=== PATIENT | male | born 1940 | race Caucasian/White ===

== ENCOUNTER → 2017-03-23 | Day surgery (SDC) | payer MEDICARE ==
[~2017-03-23] MED LIST: AMLO5TAB22 PO; ASPI81 PO; BUPIVACAINE HCL PF 0.5% 10 ML VIAL ONE; DIOV160T60 PO; FENO50TA PO; FISH1000 PO; GENTAMICIN SULFATE 80 MG/2 ML VIAL ONE; HYDR12.56 PO; NIAC100T3 PO; OMEP20CA5 PO; PRIM50TA PO; PROPOFOL 200 MG/20 ML AMP IV ONE; SODIUM CHLORIDE 0.9% 100 ML ADDBAG IV ONE; TAB-TAB PO; TAMS0.4C67 PO; TOPR100T15 PO; ceFAZolin INJ 1,000 MG VIAL ONE
--- NOTE | 2017-03-23 17:49 | TN ---
cc: LASHAWN MONTES M.D. DATE OF SURGERY 03/23/2017 PREOPERATIVE DIAGNOSES 1. Phimosis (ICD - 10 code of N47.1). 2. 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 POSTOPERATIVE DIAGNOSES 1. Phimosis (ICD - 10 code of N47.1). 2. 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 PROCEDURE 1. Complex circumcision (CPT code 66054 - 22). 2. Meatotomy (CPT code 04594 - 59). INDICATION Mr. Moran is a 76-year-old gentleman who complained of lower urinary tract symptoms and on evaluation was found to have severe phimosis of the foreskin with complete adherence of the foreskin to the glans penis and meatal stenosis. He present now for definitive treatment. FINDINGS Are severe phimosis with excessive scarring and adhesions of the foreskin to the glans penis with resultant meatal stenosis. There is only a small opening dorsally to be able to even visualize the glans. PROCEDURE DETAILS Procedure well as risks, benefits were explained to the patient. Informed consent was obtained. The patient was taken major operative theater where he was placed in supine position. The patient was identified as well as the operative site and a universal time-out was performed in standard fashion. At this time general anesthetic and prophylactic intravenous antibiotics of Ancef 1 gram was administered. After adequate anesthetic his genitalia and groin were prepped and draped in the usual sterile fashion. At this time a penile block was performed using 1% lidocaine plain and 0.25% Marcaine plain. This was done in standard fashion. At this time due to the complete adhesion of the foreskin a dorsal slit was performed at the 12 o'clock position between two mosquito clamps and tenotomies were used to incise the tissue so that the glans could presumably be released however, due to the excessive scarring there was essentially no evidence of the coronal sulcus or obvious plane so essentially meticulous dissection once we were able to identify the coronal sulcus was performed circumferentially and all of the tissue was incised sharply so that the coronal sulcus could be liberated. At this time a ventral meatotomy was made in the ventral fashion using a blade over the Chante sounds to open up the meatus. At this time the formal circumcision was then performed using the sleeve technique. A sterile skin marker was made to naga the level of the coronal sulcus in the unretracted state and then in the retracted state about a centimeter below the coronal sulcus and the distal shaft skin. This was then incised using the 11 blade scalpel and then electrocautery was used for meticulous hemostasis. After both incisions were made circumferentially that sleeve of tissue was excised using the electrocautery. After confirming hemostasis the skin edges were opposed using 3-0 chromic suture in an interrupted pattern first in quadrants and then these were bisected until there was complete apposition of the tissue. At this time Polysporin ointment and dry dressings were applied. The patient emerged from anesthetic without difficulty and transferred to recovery room in stable condition to be discharged home when criteria is met. Please note that there was substantial additional work required for this procedure due to the severity of the adhesions, this caused increased intensity, time and some technical difficulty with this procedure. Thus the services rendered were significantly more complex than described for the CPT code in question. MD CHRIS Ruby/ANA /5:09 PM /5:27 PM
== END | disposition home or self-care (01) ==
LOC: ESDC 12:15
PROVIDERS: ATTEND Urology
DX: N47.1 Phimosis (principal); N35.9 Urethral stricture, unspecified
CPT/HCPCS: 00920; 53020; 54161; J0690; J1580; J3010

== ENCOUNTER 2017-08-29 21:11 | Emergency (ER) | payer MEDICARE ==
[~2017-08-29] VITALS: Ht 175.3 cm; Wt 100.0 kg
[~2017-08-29 21:11] MED LIST changes: -BUPIVACAINE HCL PF 0.5% 10 ML VIAL ONE; -GENTAMICIN SULFATE 80 MG/2 ML VIAL ONE; -PROPOFOL 200 MG/20 ML AMP IV ONE; -SODIUM CHLORIDE 0.9% 100 ML ADDBAG IV ONE; -ceFAZolin INJ 1,000 MG VIAL ONE
[2017-08-29 21:18] VITALS: BP 207/84; PULSE 75; RESP 17; TEMP 99; O2SAT 96
[2017-08-29] MEDS ORDERED: FENO145T2 PO (21:32)
[2017-08-29] MEDS ORDERED: ROSU40 PO (21:32)
[2017-08-29] MEDS ORDERED: VALS1TAB65 PO (21:32)
[2017-08-29] MEDS ORDERED: TAMS0.4C4 PO (21:32)
[2017-08-29] MEDS ORDERED: OMEP40CA2 (21:32)
[2017-08-29 21:35] VITALS: O2SAT 96
[2017-08-29] MEDS ORDERED: PROP120C PO (21:41)
[2017-08-29] MEDS ORDERED: ASPI-516 CHEW (21:41)
[2017-08-29] MEDS ORDERED: PRIM50TA5 PO (21:41)
[2017-08-29] MEDS ORDERED: FISH1200 (21:41)
[2017-08-29] MEDS ORDERED: FIBE625T PO (21:41)
[2017-08-29] MEDS ORDERED: SACC1CAP3 PO (21:41)
[2017-08-29] MEDS ORDERED: CALCTAB33 PO (21:41)
[2017-08-29] MEDS ORDERED: NIAC500T5 PO (21:41)
[2017-08-29] MEDS ORDERED: MULT1TAB46 (21:41)
--- NOTE | 2017-08-29 21:41 | PD ---
HPI Chief Complaint: General Weakness Time Seen by Provider: 21:18 Travel History International Travel<30 days: No Contact w/Intl Traveler<30days: No Traveled to known affect area: No History of Present Illness HPI 69-year-old male presents to the emergency department for evaluation of dizziness and difficulty focusing his eyes and the TV that started 7 PM this evening. Patient states he was watching TV when he felt slightly dizzy. He states the dizziness is worse with movement. He states that when he would focus on the TV, he would notice that his eyes would not focus and became " cross eyed". However, he looked away, they would resolve but when he looked back at the TV with start up again. Patient denies headache. He denies any chest pain or shortness of breath. No abdominal pain. No nausea, vomiting, diarrhea. He does report history of Mnire's disease, but states this feels different. Patient has history of cardiac bypass and pacemaker. He also has diet-controlled diabetes. Moderate severity. Patient reports chronic weakness of the left arm and right leg from polio as a child. He denies any new weakness or syncope. PFSH Past Medical History Arthritis: No Asthma: No Autoimmune Disease: No Blood Disorders: No Anxiety: No Depression: No Heart Rhythm Problems: Yes Cancer: No Cardiovascular Problems: Yes High Cholesterol: Yes Chemotherapy: No Chest Pain: Yes Congestive Heart Failure: No COPD: No Cerebrovascular Accident: No Diabetes: Yes Patient Takes Glucophage: No Diminished Hearing: Yes (ZARA HEARING AIDS) Endocrine: No Gastrointestinal Disorders: Yes GERD: No Glaucoma: No Genitourinary: No Headaches: No Hepatitis: No Hiatal Hernia: No Hypertension: Yes Immune Disorder: No Kidney Stones: No Medical other: Yes (POLIO) Musculoskeletal: No Neurologic: No Psychiatric: No Reproductive: No Respiratory: No Migraines: No Myocardial Infarction: No Radiation Therapy: No Renal Failure: No Seizures: No Sickle Cell Disease: No Sleep Apnea: No Thyroid Disease: No Ulcer: Yes (hx bleed ) Influenza Vaccination: Yes ?: Not Past Surgical History Abdominal Surgery: No AICD: No Appendectomy: No Arteriovenous Shunt: No Cardiac Surgery: Yes (cabgx2) Cholecystectomy: No Coronary Artery Bypass Graft: Yes (2 VESSEL JUNE 2001) Ear Surgery: Yes (MENEIERS DISEASE-EAR SURGERY X 2--) Endocrine Surgery: No Eye Surgery: No Genitourinary Surgery: No Gynecologic Surgery: No Insulin Pump: No Joint Replacement: No Neurologic Surgery: Yes (LAMINECTOMY LUMBAR SPINE 1990) Oral Surgery: No Pacemaker: Yes ([facility]) Thoracic Surgery: Yes Social History Alcohol Use: No Tobacco Use: No Substance Use: No Allergies-Medications (Allergen,Severity, Reaction): Coded Allergies: No Known Allergies (Verified , 10/02/15) Reported Meds & Prescriptions Reported Meds & Active Scripts Active Reported Fibercon (Calcium Polycarbophil) 625 Mg Tab 625 Mg PO BID PRN Probiotic (Saccharomyces Boulardii) 250 Mg Cap 250 Mg PO BID Multi Vitamin Daily (Multiple Vitamin) 1 Tab Tab Fish Oil 1200 mg (Pierson-3 Fatty Acids) 360 Mg-1,200 Mg Cap Calcium 600+D Plus Minerals (Calcium Carbonate-Vitamin D W/Minerals) 600-400 Mg- Unit Tab 1 Tab PO BID Niacin 500 Mg Tab 500 Mg PO DAILY Aspirin 81 Mg Chew 81 Mg CHEW DAILY Propranolol ER 24 HR (Propranolol HCl) 120 Mg Cap 120 Mg PO DAILY Primidone 50 Mg Tab 50 Mg PO BID Crestor (Rosuvastatin Calcium) 40 Mg Tab 40 Mg PO DAILY Fenofibrate 145 Mg Tab 145 Mg PO DAILY Valsartan 160 Mg Tab 160 Mg PO DAILY Omeprazole 40 Mg Cap 40 Mg BID Tamsulosin (Tamsulosin HCl) 0.4 Mg Cap 0.8 Mg PO HS Review of Systems Except as stated in HPI: all other systems reviewed are Neg Physical Exam Narrative GENERAL: Well-nourished, well-developed elderly male patient, afebrile. SKIN: Focused skin assessment warm/dry. HEAD: Normocephalic. Atraumatic. ENT: Mucosa pink and moist. No erythema or exudates. No uvular edema. No uvular , palatal, or tonsillar deviation. Airway patent. Nasal turbinates appear normal without nasal blood, purulent drainage or septal hematoma. Bilateral tympanic membranes clear without erythema or perforation. EYES: No scleral icterus. No injection or drainage. NECK: Supple, trachea midline. No JVD or lymphadenopathy. CARDIOVASCULAR: Regular rate and rhythm without murmurs, gallops, or rubs. Bilateral radial and pedal pulses are 2+. RESPIRATORY: Breath sounds equal bilaterally. No accessory muscle use. Lung sounds are clear to auscultation. GASTROINTESTINAL: Abdomen soft, non-tender, nondistended. MUSCULOSKELETAL: No cyanosis, or edema. Bilateral upper and lower extremity strength 5/5. All extremities are neurovascularly intact. BACK: Nontender without obvious deformity. No CVA tenderness. NEUROLOGICAL: Awake and alert. Cranial nerves II through XII intact. Motor and sensory grossly within normal limits. Five out of 5 muscle strength in all muscle groups. Normal speech. Finger to nose is normal with the right hand. He is unable to complete with the left hand due to chronic weakness of the left arm. Uiop-lh-wpsf is normal bilaterally. Data Data Last Documented VS Vital Signs Date Time Temp Pulse Resp B/P (MAP) Pulse Ox O2 Delivery O2 Flow Rate FiO2 08/29/17 22:16 71 165/72 (103) 82 215/83 (127) 192/95 (127) 08/29/17 21:35 96 Room Air 08/29/17:18 99.0 17 Orders Orders Electrocardiogram (08/29/17 21:32) Complete Blood Count With Diff (08/29/17 21:32) Comprehensive Metabolic Panel (08/29/17 21:32) Magnesium (Mg) (08/29/17 21:32) Ckmb (Isoenzyme) Profile (08/29/17 21:32) Troponin I (08/29/17 21:32) Act Partial Throm Time (Ptt) (08/29/17 21:32) Prothrombin Time / Inr (Pt) (08/29/17 21:32) Urinalysis - C+S If Indicated (08/29/17 21:32) Chest, Single Ap (08/29/17 21:32) Ct Brain W/O Iv Contrast(Rout) (08/29/17 21:32) Ecg Monitoring (08/29/17 21:32) Iv Access Insert/Monitor (08/29/17 21:32) Oximetry (08/29/17 21:32) Meclizine (Antivert) (08/29/17 21:45) Sodium Chloride 0.9% Flush (Ns Flush) (08/29/17 21:45) Orthostatic Vital Signs (08/29/17 21:32) Sodium Chlorid 0.9% 500 Ml Inj (Ns 500 M (08/29/17 21:45) CKMB (08/29/17 21:35) CKMB% (5/20/18 21:35) Ed Discharge Order (08/29/17 23:00) Labs Laboratory Tests Test 08/29/17 21:35 08/29/17 22:39 White Blood Count 7.9 TH/MM3 Red Blood Count 4.94 MIL/MM3 Hemoglobin 14.5 GM/DL Hematocrit 43.8 % Mean Corpuscular Volume 88.5 FL Mean Corpuscular Hemoglobin 29.4 PG Mean Corpuscular Hemoglobin Concent 33.2 % Red Cell Distribution Width 15.5 % Platelet Count 194 TH/MM3 Mean Platelet Volume 9.0 FL Neutrophils (%) (Auto) 52.7 % Lymphocytes (%) (Auto) 35.2 % Monocytes (%) (Auto) 9.8 % Eosinophils (%) (Auto) 1.4 % Basophils (%) (Auto) 0.9 % Neutrophils # (Auto) 4.2 TH/MM3 Lymphocytes # (Auto) 2.8 TH/MM3 Monocytes # (Auto) 0.8 TH/MM3 Eosinophils # (Auto) 0.1 TH/MM3 Basophils # (Auto) 0.1 TH/MM3 CBC Comment DIFF FINAL Differential Comment Blood Urea Nitrogen 17 MG/DL Creatinine 1.03 MG/DL Random Glucose 132 MG/DL Total Protein 6.7 GM/DL Albumin 3.4 GM/DL Calcium Level 8.9 MG/DL Magnesium Level 2.0 MG/DL Alkaline Phosphatase 43 U/L Aspartate Amino Transf (AST/SGOT) 55 U/L Alanine Aminotransferase (ALT/SGPT) 49 U/L Total Bilirubin 0.4 MG/DL Sodium Level 140 MEQ/L Potassium Level 4.3 MEQ/L Chloride Level 106 MEQ/L Carbon Dioxide Level 24.2 MEQ/L Anion Gap 10 MEQ/L Estimat Glomerular Filtration Rate 70 ML/MIN Total Creatine Kinase 191 U/L Creatine Kinase MB 2.4 NG/ML Troponin I LESS THAN 0.02 NG/ML MDM Medical Decision Making Medical Screen Exam Complete: Yes Emergency Medical Condition: Yes Medical Record Reviewed: Yes Interpretation(s) Last Impressions Head CT 08/29/172131 Signed Impressions: Service Date/Time: Tuesday, August 29, 2017 22:15 - CONCLUSION: 1. Senescent changes without acute intracranial abnormality. Ottoniel De La Rosa MD Chest X-Ray 08/29/172131 Signed Impressions: Service Date/Time: Tuesday, August 29, 2017 21:44 - CONCLUSION: 1. No acute abnormality or significant interval change Ottoniel D eLa Rosa MD Differential Diagnosis Vertigo versus intracranial abnormality versus ACS versus electrode abnormality versus dehydration Narrative Course 69-year-old male presents to the emergency department for evaluation of dizziness. He denies any dizziness as long as he is lying still. EKG shows sinus rhythm and left bundle branch block, heart rate 76. According to chart, he has history of chronic left bundle branch block. CBC, CMP, magnesium, CK, troponin, PTT, PT/INR, UA, chest x-ray, CT the brain are ordered and pending. Patient is given normal saline 500 mL bolus, meclizine 25 mg p.o. CBC shows no acute abnormality. CMP shows no acute abnormality. Magnesium is 2.0. CK is 191. Troponin is less than 0.02. UA [-]. Chest x-ray shows No acute abnormality or significant interval change. CT of the brain shows senescent changes without acute intracranial abnormality. Exam and labs are reassuring. Patient is stable for discharge from all his primary care physician. The patient was discharged in stable condition with instructions, including return instructions and follow up instructions. Diagnosis Primary Impression: Dizziness Referrals: Primary Care Physician call for appointment Patient Instructions: Dizziness (ED), General Instructions Additional Instructions: Follow-up with a primary care physician. Return to the emergency department for any acute worsening of symptoms. Med/Other Pt SpecificInfo: No Change to Meds Disposition: 01 DISCHARGE HOME Condition: Stable Karissa Kay CINDI August 29, 2017 21:41
[2017-08-29] MEDS ORDERED: SODIUM CHLORID 0.9% 500 ML INJ 500 ML IV ONE (21:45)
[2017-08-29] MEDS ORDERED: SODIUM CHLORIDE 0.9% FLUSH 10 ML FLUSH IVF PRN (21:45)
[2017-08-29] MEDS ORDERED: MECLIZINE HCL 25 MG TAB PO ONE (21:45)
[2017-08-29 21:54] LABS: AUTOMATED NEUTROPHIL # 4.2 TH/MM3 (1.8-7.7); BASOPHIL # 0.1 TH/MM3 (0-0.2); BASOPHIL % 0.9 % (0.0-2.0); EOSINOPHIL # 0.1 TH/MM3 (0-0.4); EOSINOPHIL % 1.4 % (0.0-4.0); HEMATOCRIT 43.8 % (39.0-51.0); HEMOGLOBIN 14.5 GM/DL (13.0-17.0); LYMPH % 35.2 % (9.0-44.0); LYMPHOCYTE # 2.8 TH/MM3 (1.0-4.8); MEAN CELL VOLUME 88.5 FL (80.0-100.0); MEAN CORPUSCULAR HEMOGLOBIN 29.4 PG (27.0-34.0); MEAN CORPUSCULAR HGB CONC 33.2 % (32.0-36.0); MONO % 9.8 % (0.0-8.0); MONOCYTE # 0.8 TH/MM3 (0-0.9); NEUT % 52.7 % (16.0-70.0); PLATELET COUNT 194 TH/MM3 (150-450); RED BLOOD COUNT 4.94 MIL/MM3 (4.50-5.90); RED CELL DISTRIBUTION WIDTH 15.5 % (11.6-17.2); WHITE BLOOD COUNT 7.9 TH/MM3 (4.0-11.0)
--- NOTE | 2017-08-29 21:55 | RADRPT ---
EXAM DATE/TIME: 08/29/2017 21:44 [facility] COMPARISON: CHEST SINGLE AP, October 03, 2015, 12:13. INDICATIONS : Short of breath. MEDICAL HISTORY : None. SURGICAL HISTORY : Pacemaker. CABG. ENCOUNTER: Initial ACUITY: 1 day PAIN SCORE: 0/10 LOCATION: Bilateral chest FINDINGS: No new focal pleural or parenchymal opacities. Dual-lead pacemaker in place. Median sternotomy wires. The cardiomediastinal contours are unremarkable. Osseous structures are intact. CONCLUSION: 1. No acute abnormality or significant interval change Ottoniel De La Rosa MD on August 29, 2017 at 21:53 Board Certified Radiologist. This report was verified electronically.
[2017-08-29 22:09] LABS: ALT (GPT) 49 U/L (12-78)
[2017-08-29 22:10] LABS: ALBUMIN 3.4 GM/DL (3.4-5.0); AST (GOT) 55 U/L (15-37); BICARBONATE 24.2 MEQ/L (21.0-32.0); BLOOD UREA NITROGEN 17 MG/DL (7-18); CALCIUM 8.9 MG/DL (8.5-10.1); CHLORIDE 106 MEQ/L (98-107); CREATININE 1.03 MG/DL (0.60-1.30); GLOMERULAR FILTRATION RATE 70 ML/MIN (>89); GLUCOSE,RANDOM 132 MG/DL (74-106); SODIUM (NA) 140 MEQ/L (136-145)
[2017-08-29 22:16] VITALS: BP_SYST 165; BP_SYST 192; BP_SYST 215; BP_DIAS 72; BP_DIAS 83; BP_DIAS 95
[2017-08-29 22:17] LABS: ALKALINE PHOSPHATASE 43 U/L (45-117); TOTAL BILIRUBIN ADULT 0.4 MG/DL (0.2-1.0); TOTAL PROTEIN 6.7 GM/DL (6.4-8.2); TROPONIN I LESS THAN 0.02 NG/ML (0.02-0.05)
--- NOTE | 2017-08-29 22:33 | RADRPT ---
EXAM DATE/TIME: 08/29/2017 22:15 [facility] COMPARISON: No previous studies available for comparison. INDICATIONS : Dizziness. RADIATION DOSE: 56.35 CTDIvol (mGy) MEDICAL HISTORY : Cardiovascular disease. Hypertension. Diabetes mellitus type 2. SURGICAL HISTORY : CABG Pacemaker. ENCOUNTER: Initial ACUITY: 1 day PAIN SCALE: 0/10 LOCATION: cranial TECHNIQUE: Multiple contiguous axial images were obtained of the head. Using automated exposure control and adj ustment of the mA and/or kV according to patient size, radiation dose was kept as low as reasonably a chievable to obtain optimal diagnostic quality images. DICOM format image data is available electro nically for review and comparison. FINDINGS: CEREBRUM: Mild diffuse cerebral atrophy. The ventricles are normal for degree of atrophy. No evidence of midli ne shift, mass lesion, hemorrhage or acute infarction. No extra-axial fluid collections are seen. POSTERIOR FOSSA: The cerebellum and brainstem are intact. The 4th ventricle is midline. The cerebellopontine angle i s unremarkable. EXTRACRANIAL: The visualized portion of the orbits is intact. Postsurgical sutures in the right mastoid air cells SKULL: The calvaria is intact. No evidence of skull fracture. CONCLUSION: 1. Senescent changes without acute intracranial abnormality. Ottoniel De La Rosa MD on August 29, 2017 at 22:30 Board Certified Radiologist. This report was verified electronically.
[2017-08-29 23:03] LABS: BACTERIA, URINE RARE /hpf; BILIRUBIN, URINE NEG (NEG); BLOOD, URINE NEG (NEG); GLUCOSE,URINE NEG (NEG); KETONE, URINE NEG (NEG); MUCUS URINE FEW /lpf (OCC); NITRITE,URINE NEG (NEG); PH, URINE 5.5 (5.0-8.5); SQUAMOUS EPITHELIAL CELL URINE <1 /hpf (0-5); URINE COLOR YELLOW (YELLW/STRAW); URINE LEUKOCYTE ESTERASE TRACE (NEG)
[2017-08-29 23:27] VITALS: BP 161/70
[2017-08-30 00:02] LABS: INTERNATIONAL NORMALIZED RATIO 1.1 RATIO; PROTHROMBIN TIME - PATIENT 11.3 SEC (9.8-11.6)
--- NOTE | 2017-08-30 08:06 | EKG ---
Date Performed: 08/29/2017 Time Performed: 21:25:09 PTAGE: 77 years EKG: Sinus rhythm LEFT BUNDLE BRANCH BLOCK ABNORMAL ECG NO PREVIOUS TRACING DOCTOR: Jose E Purcell Interpretating Date/Time 08/30/2017 08:04:45
== END 2017-08-29 23:32 | disposition home or self-care (01) ==
LOC: NEPC 21:11
DX: R42 Dizziness and giddiness (principal); H53.8 Other visual disturbances; I44.7 Left bundle-branch block, unspecified; R94.31 Abnormal electrocardiogram [ECG] [EKG]; I10 Essential (primary) hypertension; E11.9 Type 2 diabetes mellitus without complications; E78.00 Pure hypercholesterolemia, unspecified; H91.93 Unspecified hearing loss, bilateral; Z95.1 Presence of aortocoronary bypass graft; Z95.0 Presence of cardiac pacemaker; Z87.19 Personal history of other diseases of the digestive system
CPT/HCPCS: 70450; 71045; 80053; 81001; 82550; 82552; 83735; 84484; 85025; 85610; 85730; 93005; 96360; 99285; J7040